=== PATIENT | male | born 1980 | race Caucasian/White ===

== ENCOUNTER 2022-11-04 20:25 | Emergency (ER) | payer OTHER, SELFPAY ==
[2022-11-04 20:33] VITALS: BP 131/87; PULSE 70; RESP 16; TEMP 36.4; O2SAT 99; BMI 30.8
== END 2022-11-04 21:17 | disposition left against medical advice (07) ==
PROVIDERS: Emergency Provider Emergency Medicine
DX: R13.10 Dysphagia, unspecified (principal)
CPT/HCPCS: 99281